=== PATIENT | male | born 1955 | race Caucasian/White ===

== ENCOUNTER → 2016-09-04 | Outpatient (CLI) | payer OTHER | LOC: FIMAGING 11:29 | PROVIDERS: ATTEND Family Medicine | DX: M51.36 Other intervertebral disc degeneration, lumbar region (principal); M43.8X6 Other specified deforming dorsopathies, lumbar region; I70.0 Atherosclerosis of aorta ==

== ENCOUNTER 2018-06-22 01:33 | Inpatient (IN) | payer OTHER ==
[2018-06-22] MEDS ORDERED: NS 1,000 ML IV ONE (01:41)
--- NOTE | 2018-06-22 01:43 | EDPHY ---
H & P Stated Complaint: R sided CP since 2029 Time Seen by Provider: 06/22/18 01:43 HPI/ROS: HPI CHIEF COMPLAINT: Chest pain. HISTORY OF PRESENT ILLNESS: 62-year-old male, history of coronary artery disease with stents, hypertension, hyperlipidemia, PERI, presents emergency room with chest pain. He states this started around 830 at night. Developed sharp stabbing pain that radiated from around the right side of his chest around his right shoulder to his back. He now complains of dull aching chest pressure substernal right-sided. No pleuritic pain. No shortness of breath. No nausea no diaphoresis no vomiting. Denies pleuritic pain. He describes this chest discomfort is similar to his previous times he had in stent thrombosis cardiac stents. Currently describes 11/14. He took multiple nitroglycerin prior to arrival with some relief. Past Medical History: Past medical history for coronary artery disease, hypertension, hyperlipidemia, obstructive sleep apnea, cardiac disease with stents, in stent thrombosis Past Surgical History: PTCA, cardiac stent Social History: Denies drugs alcohol tobacco. Family History: Noncontributory ROS REVIEW OF SYSTEMS: 10 Systems were reviewed and negative with the exception of the elements mentioned in the history of present illness. Exam Constitutional nontoxic, triage nursing summary reviewed, vital signs reviewed , awake/alert. Eyes normal conjunctivae and sclera, EOMI, PERRLA. HENT normal inspection, atraumatic, moist mucus membranes, no epistaxis, neck supple/ no meningismus, no raccoon eyes. Respiratory clear to auscultation bilaterally, normal breath sounds, no respiratory distress, no wheezing. Cardiovascular rate normal, regular rhythm, no murmur, no edema, distal pulses normal. Gastrointestinal soft, non-tender, no rebound, no guarding, normal bowel sounds, no distension, no pulsatile mass. Genitourinary no CVA tenderness. Musculoskeletal no midline vertebral tenderness, full range of motion, no calf swelling, no tenderness of extremities, no meningismus, good pulses, neurovascularly intact. Skin pink, warm, & dry, no rash, skin atraumatic. Neurologic awake, alert and oriented x 3, AAOx3, moves all 4 extremities equally, motor intact, sensory intact, CN II-XII intact, normal cerebellar, normal vision, normal speech. Psychiatric normal mood/affect. Heme/Lymph/Immune no lymphadenopathy. Differential diagnosis includes but is not limited to: ACS, atypical chest pain , pneumothorax, pneumonia, pulmonary embolism, aortic dissection, congestive heart failure, tumor, musculoskeletal pain, esophageal pain, GERD, peptic ulcer disease, pancreatitis Medical Decision Making: Plan for this patient IV establishment full cardiac rehabilitation program director, EKG, troponin, basic blood work, chest x-ray and re-evaluation. Rule out acute coronary syndrome. bus monitor. Full-dose aspirin, nitroglycerin. Re-evaluation: EKG interpretation by me on record in [email or web address] system. Impression time of EKG 1:45 a.m., sinus rhythm rate of 68, no signs of acute ischemia. No ST elevation. ED x-ray chest one view cardiomegaly with widened mediastinum. Good lung inflammation otherwise. Troponin is negative. The patient's EKG does not show acute ischemia and looks similar to his previous EKG dated 06/13/2014 HEART Score for Major Cardiac Events from [email or web address] on 06/22/2018 All calculations should be rechecked by clinician prior to use RESULT SUMMARY: 4 points Moderate Score (4-6 points) Risk of MACE of 12-16.6%. INPUTS: History > 1 = Moderately suspicious EKG > 0 = Normal Age > 1 = 45-64 Risk factors > 2 = 3 risk factors or history of atherosclerotic disease Initial troponin > 0 = normal limit CT angiogram the chest no evidence of pulmonary embolism. Extensive coronary calcifications. No AAA and no dissection. Called to me by Dr. Burris. Patient at this time 3:20 a.m. Resting comfortably chest pain-free. Received nitro which improved his chest discomfort. D-dimer negative Troponin negative EKG nonischemic. 0338: Patient re-evaluated this time resting comfortably no acute distress. Vital signs are stable Plan for admission the hospitalist service Dr. Oreilly. Agrees to admit Further cardiac evaluation. Patient updated and agrees for admission. Heart score calculated moderate score due to coronary artery disease with stents. Source: Patient - Personal History Current Tetanus/Diphtheria Vaccine: Unsure - Medical/Surgical History Hx Asthma: No Hx Chronic Respiratory Disease: No Hx Diabetes: No Hx Cardiac Disease: Yes Hx Renal Disease: No Hx Cirrhosis: No Hx Alcoholism: No Hx HIV/AIDS: No Hx Splenectomy or Spleen Trauma: No Other PMH: stents,cad, hyperlipidemia. gerd. htn. environmental allergies - Social History Smoking Status: Never smoked Constitutional: Initial Vital Signs Temperature (C) 36.7 C 06/22/18 01:34 Heart Rate 80 06/22/18 01:34 Respiratory Rate 18 06/22/18 01:34 Blood Pressure 137/85 H 06/22/18 01:34 O2 Sat (%) 93 06/22/18 01:34 O2 Delivery Mode Room Air Allergies/Adverse Reactions: Penicillins Allergy (Unknown, Verified 06/22/18 09:32) Hives sulfamethoxazole [From Septra] Allergy (Unknown, Verified 06/22/18 09:32) Hives trimethoprim [From Septra] Allergy (Unknown, Verified 06/22/18 09:32) Hives Home Medications: Medication Instructions Recorded Aspirin [Aspirin 325 mg (*)] 325 mg PO DAILY 06/12/14 Atorvastatin Calcium [Lipitor 40 80 mg PO DAILY 06/12/14 mg (*)] Clopidogrel Bisulfate [Plavix (*)] 75 mg PO DAILY 06/12/14 Fluticasone Nasal [Flonase Nasal 1 sprays NASAL DAILY 06/12/14 [place]] Nitroglycerin [Nitrolingual] 0.4 gm TL PRN PRN 06/12/14 amLODIPine BESYLATE [Norvasc 5 mg 5 mg PO DAILY 06/12/14 (*)] Nebivolol HCl [Bystolic 5 mg (*)] 5 mg PO DAILY 06/22/18 Medical Decision Making - Diagnostics Imaging Results: Imaging Impressions Chest/Thorax CTA 06/22/18 02:28 Impression: 1. No definite pulmonary thromboemboli. 2. No aortic aneurysm or dissection. 3. Mediastinal fat without hematoma or fluid collection. 4. Coronary atherosclerosis and mild cardiomegaly. 5. No pneumonia, pleural effusion, pneumothorax, or suspicious pulmonary nodules. Findings and recommendations discussed with Emergency Department physician, Thomas Ruff MD, at 0305 hours, 06/22/2018. Final report concurs with initial preliminary interpretation. - Data Points Laboratory Results: Laboratory Results 06/22/18 01:50 06/22/18 01:50 Medications Given: Acetaminophen (Tylenol) 650 mg PO QID PRN PRN Reason: Pain, Mild Able to Take PO Stop: 12/19/18 10:59 Last Admin: 06/22/18 15:43 Dose: 650 mg Aspirin (Aspirin) 325 mg PO DAILY [facility] Stop: 12/19/18 10:14 Last Admin: 06/22/18 12:23 Dose: Not Given Sodium Chloride (Ns) 1,000 mls @ 100 mls/hr IV CONT TONI Stop: 12/19/18 15:44 Last Admin: 06/22/18 20:15 Dose: 1,000 mls Nebivolol (Bystolic) 5 mg PO DAILY [facility] Stop: 12/19/18 09:59 Last Admin: 06/22/18 12:23 Dose: 5 mg Discontinued Medications Aspirin (Aspirin) 324 mg PO EDNOW ONE Stop: 06/22/18 02:18 Last Admin: 06/22/18 02:18 Dose: 324 mg Aspirin Buffered (Aspirin Ec) 325 mg PO ONCALL ONE Stop: 06/22/18 11:01 Last Admin: 06/22/18 12:23 Dose: 325 mg Clopidogrel Bisulfate (Plavix) 300 mg PO ONCE ONE Stop: 06/22/18 15:39 Last Admin: 06/22/18 18:09 Dose: Not Given Diazepam (Valium) 5 mg PO ONCALL ONE Stop: 06/22/18 11:01 Last Admin: 06/22/18 13:32 Dose: Not Given Diphenhydramine HCl (Benadryl) 25 mg PO ONCALL ONE Stop: 06/22/18 11:01 Last Admin: 06/22/18 13:32 Dose: Not Given Famotidine (Pepcid) 20 mg PO ONCALL ONE Stop: 06/22/18 11:01 Last Admin: 06/22/18 13:32 Dose: Not Given Sodium Chloride (Ns) 1,000 mls @ 0 mls/hr IV EDNOW ONE; Wide Open PRN Reason: Protocol Stop: 06/22/18 01:42 Last Admin: 06/22/18 01:57 Dose: 1,000 mls Morphine Sulfate (Morphine) 6 mg IVP EDNOW ONE Stop: 06/22/18 03:36 Last Admin: 06/22/18 03:44 Dose: 6 mg Nitroglycerin (Nitrostat) 0.4 mg SL EDNOW ONE Stop: 06/22/18 02:08 Last Admin: 06/22/18 02:52 Dose: 0.4 mg Point of Care Test Results: Chemistry 06/22/18 01:51 POC Troponin I 0.00 ng/mL ng/mL (0.00-0.08) Departure - Departure Disposition: [facility] Acute Clinical Impression: Chest pain Qualifiers: Chest pain type: unspecified Qualified Code(s): R07.9 - Chest pain, unspecified Condition: Fair
[2018-06-22 01:54] LABS: PLATELET COUNT 267 10^3/uL (150-400)
[2018-06-22 02:03] LABS: INR 0.95 (0.83-1.16); PROTIME(PATIENT) 12.9 SEC (12.0-15.0)
[2018-06-22] MEDS ORDERED: ASPIRIN EC 325 MG TAB PO ONE ×2 (02:07→11:00)
[2018-06-22 02:08] LABS: CREATINE KINASE 177 IU/L (0-224)
[2018-06-22] MEDS ORDERED: ASPIRIN 81 MG CHEWABLE TAB ONE (02:15)
[2018-06-22] MEDS ORDERED: ASPIRIN 81 MG CHEWABLE TAB PO ONE (02:17)
[2018-06-22] MEDS: NITROGLYCERIN 0.4 MG BTL SL ONE ×2 (02:18→02:52)
[2018-06-22] MEDS ORDERED: IOPAMIDOL (ISOVUE 370) 100 ML BTL IV ONE (02:30)
--- NOTE | 2018-06-22 08:22 | GHP ---
DATE OF ADMISSION: 06/22/2018 The patient is a pleasant 62-year-old gentle with a history of coronary artery disease and 2 RCA sten ts. His last stent was placed in June of 2014. He has been compliant with aspirin and Plavix. Karina alarcon has done well since then other than worsening back pain. Last night he got up to go get something after watching TV, pain across his left side, radiating around to his back and to a lesser degree on his left side. It was not accompanied with diaphoresis or shortness of breath. There was a pressure aspect of it that was similar in nature to his previous anginal symptoms, although both had shortness of breath as well. He did not make the connection to his anginal symptoms and used a heating pad fo r a couple hours where the pain was steady and then ultimately decided to take a nitroglycerin spray which resulted in improvement. He has not had recent fever, chills, cough, sputum, nausea, vomiting, diarrhea. He does not have hea rt failure symptoms such as PND or orthopnea. It sounds like his back pain limits his exercise naun ance. REVIEW OF SYSTEMS: Complete 10-point review of systems conducted and negative except as noted in the HPI. PAST MEDICAL HISTORY: Coronary artery disease with 2 RCA stents, hypertension, hyperlipidemia, reflu x, chronic sinusitis, low back pain. He had 2011 and 2014 RCA stents, there is a question of in-sten t thrombosis partial in 2015. ALLERGIES: Penicillin and trimethoprim/sulfamethoxazole. MEDICATION LIST: Recent medication list is not pending, but includes aspirin, Plavix, amlodipine, at orvastatin, Bystolic, nitroglycerin, pantoprazole. FAMILY HISTORY: Reviewed and unremarkable. SOCIAL HISTORY: Is a manager business banking. Drinks rare alcohol. Does not smoke cigarettes. PHYSICAL EXAMINATION: VITAL SIGNS: Temp 36.5, blood pressure 126/77, pulse 71, breathing 20 times a minute, 93% on room air. GENERAL: No acute distress. HEENT: Sclerae anicteric. Oropharynx clear. M ucous membranes moist. NECK: Supple. No lymphadenopathy or JVD. LUNGS: Clear to auscultation nilson aterally. HEART: S1, S2. ABDOMEN: Soft, nontender, nondistended. LOWER EXTREMITIES: No edema. Ca lves nontender. SKIN: Without rash. NEUROLOGIC: Nonfocal. LABORATORY DATA: White count 8, hematocrit 44, platelets are 267,000. D-dimer is normal. Sodium 14 1, potassium 4.0, chloride 110, bicarb 22, BUN 9, creatinine 1.0, glucose 121. LFTs normal. Point o f care troponin 0.00. Lipase 109. Chest x-ray interpreted by me shows no acute cardiopulmonary disease. CTA of the chest shows no evid ence of dissection. All of that was reviewed by the ER doctor. EKG interpreted by me shows sinus at 68 with normal axis and intervals. There is some flat T-waves d iffusely. There is a little bit of ST depression in 1, but not seen in V5, V6, it is uncha nged from prior. I have discussed the case with Dr. Thomas Ruff as well as Dr. Raymundo Schulz. ASSESSMENT/PLAN: A 62-year-old gentleman with coronary artery disease with chest pain. 1. Chest pain. This is possibly an anginal equivalent. He has a negative presentation. I do consid er his previous possible in-stent thrombosis, he has been compliant with medications. Further testin g may be reasonable including possible angiogram. I have made him n.p.o., Cardiology will see him. He does not warrant heparin. I will repeat his troponin now. 2. Hypertension. Will continue his medications and they have been reconciled. 3. Hyperglycemia. This is a nonfasting sample. It is relatively low. We will follow. 4. Low back pain. This is a chronic issue and not playing a role in the current presentation. DISPOSITION: Observation status. /[id number]/MODL
[2018-06-22] MEDS ORDERED: NITROGLYCERIN TL PRN (09:58)
[2018-06-22] MEDS ORDERED: ACETAMINOPHEN 325 MG TAB PO PRN (11:00)
[2018-06-22] MEDS ORDERED: DIAZEPAM 5 MG TAB PO ONE (11:00)
[2018-06-22] MEDS ORDERED: TEMAZEPAM 15 MG CAP PO PRN (11:00)
[2018-06-22] MEDS ORDERED: diphenhydrAMINE 25 MG CAP PO ONE (11:00)
[2018-06-22] MEDS ORDERED: FAMOTIDINE 20 MG TAB PO ONE (11:00)
[2018-06-22] MEDS ORDERED: LIDOCAINE 1% 300 MG/30 ML SDV ONE (11:13)
[2018-06-22] MEDS ORDERED: MIDAZOLAM 2 MG/2 ML VIAL ONE ×3 (11:14→14:43)
[2018-06-22] MEDS ORDERED: fentaNYL 100 MCG/2 ML INJ ONE ×2 (11:14→13:42)
[2018-06-22] MEDS ORDERED: IOPAMIDOL (ISOVUE-370) 150 ML BTL IV ONE (11:14)
--- NOTE | 2018-06-22 12:06 | ECHO ---
[email or web address] [address] [address] Main: [phone] Fax: Transthoracic Echocardiogram Name: ELOISE SOLO MR#: [id number] Study Date: 06/22/2018 Study Time: 10:51 AM Date of : 1955 Age: 62 year(s) Height: 182.9 cm (72 in.) Weight: 117.03 kg (258 lb.) BSA: 2.37 m2 Gender: Male Examination: Echo Indication: Chest Pain, history CAD/2 stents Image Quality: Adequate Contrast: Requested by: Jay Andrews BP: 115 mmHg/78 mmHg Heart Rate: Rhythm: Indication: Chest Pain, history CAD/2 stents Procedure Staff Log Chipper Operator: Nataliia Flowers RDCS Reading Physician: Raymundo Schulz MD Requesting Provider: Conclusions: Normal size left ventricle. Normal global systolic LV function. The ejection fraction is estimated to be 60-65 %. No regional wall motion abnormality. Grade 1 diastolic dysfunction (abnormal relaxation). Normal RV function. The left atrium is normal in size. The right atrium is normal in size. No pericardial effusion. Measurements: Chambers Valvular Assessment AV/MV Valvular Assessment TV/PV Normal Normal Normal Name Value Range Name Value Range Name Value Range Ao Camilla (MM): 4.4 cm (2.2 cm-3.7 AV Vmax: 1.05 m/s (1 m/s-1.7 cm) m/s) IVSd (2D): 0.9 cm (0.6 cm-1.1 AV meanP mmHg ( - ) cm) MV E Vmax: 0.77 m/s ( - ) LVDd (2D): 5.3 cm (4.2 cm-5.9 MV A Vmax: 0.66 m/s ( - ) cm) MV E/A: 1.17 ( - ) LVDs (2D): 2.7 cm (2.1 cm-4 cm) LVPWd (2D): 0.9 cm (0.6 cm-1 cm) LVEF (BP): 72 % (>=55 %) EF Range: 60-65 % Continued Measurements: Chambers Valvular Assessment AV/MV Patient: ELOISE SOLO Study Date: 06/22/2018 Page 1 of 2 10:51 AM Name Value Name Value LADs: 4.2 cm MV E' Septal: 0.07 m/s LADs Lon.3 cm MV E/E' Septal: 11.80 LA Area: 18.8 cm2 MV E/E' Lateral: 10.30 LA Volume: 52 ml LA Volume Index: 21.9 ml/m2 Additional Vessels Name Value Ao Ascendin.5 cm Findings: Left Ventricle: Normal size left ventricle. No LV hypertrophy. Normal global systolic LV function. The ejection fraction is estimated to be 60-65 %. No regional wall motion abnormality. Grade 1 diastolic dysfunction (abnormal relaxation). Right Ventricle: Normal size right ventricle. Normal RV function. Left Atrium: The left atrium is normal in size. Right Atrium: The right atrium is normal in size. Mitral Valve: The mitral valve is normal in appearance and function. Trivial mitral valve regurgitation. Aortic Valve: The aortic valve is normal in appearance and function. The aortic valve is tri-leaflet. There is no aortic valve regurgitation. Tricuspid Valve: The tricuspid valve is normal in appearance and function. Trivial tricuspid valve regurgitation. Pulmonic Valve: The pulmonic valve is normal in appearance and function. Aorta: The aorta is normal. Pericardium: No pericardial effusion. (No Signature Object) Patient: ELOISE SOLO Study Date: 06/22/2018 Page 2 of 2 10:51 AM [id number]
--- NOTE | 2018-06-22 12:12 | GCON ---
CARDIOLOGY CONSULTATION DATE OF CONSULTATION: 06/22/2018 INDICATION FOR CONSULTATION: Chest pain in the setting of known coronary disease. HISTORY OF PRESENT ILLNESS: The patient is a pleasant 62-year-old gentleman who is well known to [facility] with a history of PCI to the RCA in 2011, and subsequent repeat PCI to the RCA with a 3.5 x 12 mm PROMUS drug-eluting stent in June 2015, with evidence of mild nonobstructive coronary dise ase within the left system who was in his usual state of health until the last evening around 8:30. He states he was watching TV when he got up to get a drink of water when he had an acute, sudden onse t of sharp 9/10 substernal chest pain that radiated to his back. He denied any other associated symp toms. He denied any nausea, vomiting, or diaphoresis. No associated shortness of breath. He states he tried to stretch out the pain and tried to relax. He states the pain persisted and he states he ultimately fell asleep at 10 o'clock. He woke up at midnight, describing 6/10 substernal pain, at wh ich time he took nitroglycerin spray x3. He states the nitroglycerin spray reduced his pain to a 3/1 0. At that point, he became concerned that his pain may be coronary in nature prompting him to wake his up and present to [facility] for further evaluation. Upon arrival in the emergency department, ECG demonstrated normal sinus rhythm with no acute ischemic changes. Troponin on admission was unremarkable. In the ER, he received nitroglycerin, which helped reduce his pain, but persisted. Chest x-ray was c oncerning for possible widened mediastinum. He underwent CT-A of the chest, which was negative for p ulmonary embolus and no evidence of aortic dissection. Currently at the time of my exam, he continues to experience substernal chest pain radiating to the b ack. He currently describes his pain as a 3/10. He denies any associated shortness of breath, dyspn ea, nausea, vomiting, or diaphoresis. He states his chest pain is similar to the pain that he experienced with his previous percutaneous co ronary interventions; however, previous episodes were associated with shortness of breath, which is n ot currently present. He denies any recent changes in his medications. No recent viral illness. He does have a history of GERD. He has been compliant with Protonix. He remains on dual antiplatelet therapy with aspirin an d Plavix. No bleeding issues. REVIEW OF SYSTEMS: 10-point review of systems is negative with the exception of what was discussed i n HPI. PAST MEDICAL HISTORY: Includes coronary artery disease, GERD, hypertension, hyperlipidemia, history of migraines, sleep apnea compliant with CPAP. MEDICATIONS: On admission, include Plavix 75 mg daily, atorvastatin 80 mg daily, aspirin 325 mg adam y, Norvasc 5 mg daily, Bystolic 5 mg daily, and Flonase nasal spray. ALLERGIES: To medications, include penicillin and sulfa, which result in a rash. SOCIAL HISTORY: He is . He lives with his . He is a nonsmoker. FAMILY HISTORY: Notable for diabetes, coronary disease and hypertension. PHYSICAL EXAMINATION: VITAL SIGNS: Blood pressure 115/78, heart rate of 60, respiratory rate of 16, oxygen saturation 97% on room air, temperature 36.4. GENERAL: He is awake, alert, oriented, approp riate, in no apparent distress. NECK: There is no evidence of JVP or carotid bruits. LUNGS: Clear to auscultation bilaterally. CARDIAC: S1, S2. Regular rate and rhythm. No murmurs, rubs, or gall ops. PMI is not displaced. DATA: White blood cell count 8.44, hemoglobin of 14.9, hematocrit of 44.1, platelet count 267. Sodi um 141, potassium 4.0, chloride 110, bicarb 22, BUN 18, creatinine 1, magnesium 1.8. AST 36, ALT 53, alkaline phosphatase 109. Initial troponin less than 0.012. N-terminal proBNP 25. Lipase 167. ECG demonstrates normal sinus rhythm with normal intervals, normal axis. Telemetry demonstrates sinus rhythm with occasional PVCs. Most recent stress test April 2017, demonstrated no evidence of ischemia. IMPRESSION: 1. Substernal chest pain similar to pain prior to previous percutaneous coronary intervention. 2. Known history of coronary artery disease with history of percutaneous coronary intervention to th e right coronary artery x2. 3. Hypertension. 4. Hyperlipidemia. SUMMARY: The patient is a pleasant 62-year-old gentleman with known history of coronary disease with new onset of acute chest pain radiating to the back, initially 9/10, pain persists. Initial troponi n was negative. ECG demonstrates no ischemic changes. In the setting of ongoing 3/10 substernal renato n radiating to the back with a negative CT-A for evidence of aortic dissection or pulmonary emboli, w ould recommend left heart catheterization. Risks and benefits have been discussed in detail. Patien t is agreeable to pursue. No upcoming surgeries. PLAN: 1. Echocardiogram being done currently. 2. Left heart catheterization. 3. Further medical management pending results of left heart catheterization. /[id number]/MODL
[2018-06-22 12:22] LABS: INR 1.04 (0.83-1.16); PROTIME(PATIENT) 13.8 SEC (12.0-15.0)
[2018-06-22] MEDS: ASPIRIN 325 MG TAB PO SCH (12:23)
[2018-06-22] MEDS: NEBIVOLOL HCL 5 MG TAB PO SCH (12:23)
--- NOTE | 2018-06-22 12:53 | PDPROPOC ---
Sedation Plan of Care Sedation Plan of Care: vital signs stable, mental status noted, patient educated of risks, benefits, alternatives, patient can tolerate sedation ASA Classification: ASA 2 Planned drugs: fentanyl, midazolam Mallampati Score: Class 2 Mallampati Reference Image: Patient passed 3-3-2 rule?: Yes
[2018-06-22] MEDS ORDERED: BIVALIRUDIN 250 MG/5 ML VIAL IV ONE ×3 (13:13→14:14)
--- NOTE | 2018-06-22 13:53 | CPIP ---
DATE OF PROCEDURE: 06/22/2018 INDICATION FOR PROCEDURE: Patient with ongoing chest pain despite optimal medical therapy with well- controlled blood pressure and heart rate in the setting of known coronary artery disease with previou s PCI x2 to the right coronary artery in the setting of acute onset of chest pain that began last nig ht, refractory to nitroglycerin. ECG was without ischemic changes. Initial troponin was unremarkabl e. DESCRIPTION OF PROCEDURE: After informed consent was obtained for both left heart catheterization, p ercutaneous coronary intervention, the patient was brought to the cardiac catheterization lab where h e was prepped and draped in sterile fashion. Using 1% lidocaine, the right groin was anesthetized. Using modified Seldinger technique, a micropun cture technique 6-[place]an catheter was placed in the right common femoral artery without complications . JL4 catheter was used to take images of the left coronary anatomy in multiple projections. JL4 ca theter was exchanged over a guidewire for a JR4 catheter. JR4 catheter was used to take images of th e right coronary anatomy in multiple projections. JR4 catheter was exchanged over a guidewire for an angled pigtail catheter. Angled pigtail catheter was used to cross the aortic valve. Left ventricu logram was performed. LVEDP was assessed. Aortic valve gradient was assessed on pull-back. Angled pigtail catheter was removed over a guidewire without complications. Imaging of the right common fem oral artery site demonstrated appropriate placement of the 6-[place]an sheath above the bifurcation belo w the inguinal ligament. FINDINGS: 1. Left main normal size and caliber. It trifurcates into left anterior descending, left circumflex , and ramus branch. There is no evidence of coronary disease within the left main. 2. Left anterior descending demonstrates mild luminal irregularities in the proximal segment with no flow-limiting stenosis. There is a moderate first diagonal branch with no evidence of coronary dise ase. 3. Ramus intermedius branch demonstrates no evidence of coronary disease. 4. Circumflex vessel is a codominant vessel. There is no evidence of coronary disease within the ci rcumflex vessel. There is a moderate 1st obtuse marginal branch with no evidence of coronary disease . 5. Right coronary artery is a codominant vessel. There is evidence of 20% to 30% in-stent stenosis in the distal segment of a proximal stent to the right coronary artery. Just distal to the proximal stent, there is a 90% stenosis just prior to second RV marginal branch. No evidence of flow-limiting disease in the distal segment of the right coronary artery. IMPRESSION: Severe single-vessel disease with 90% proximal right coronary artery stenosis and mild i n-stent stenosis in the distal segment of proximal right coronary artery stent. I reviewed the images with interventional colleague, Dr. Arnold. Will plan for percutaneous coronary mention to the mid right coronary artery. /[id number]/MODL
[2018-06-22] MEDS ORDERED: ATROPINE SULFATE 1 MG/10 ML SYR ONE (14:18)
[2018-06-22] MEDS ORDERED: NITROGLYCERIN 1,500 MCG/15 ML VIAL MISC ONE (14:19)
[2018-06-22] MEDS ORDERED: CLOPIDOGREL BISULFATE 75 MG TAB ONE (15:16)
--- NOTE | 2018-06-22 15:35 | SUROPNOTE ---
SOLE Operative Report - Surgery PROCEDURE: Left heart catheterization started by Dr. Schulz. Please see surgical note completed by Dr. Schulz for findings of the left and right coronary systems. INTERVENTION: A 7 Albanian JR4 Sidehole guiding catheter was used for guide catheter support. A 0.014" 180cm [place] guide wire was advanced across the lesion in question under direct fluoroscopic and angiographic guidance. A 6 Albanian JL4 guiding catheter was used for guide catheter support. A 3.0 x 15mm Emerge balloon was inflated at 18 atmospheres for 60 seconds. A [place] 3.0 x 6mm cutting balloon was advanced down the Prowater wire with three serial inflations. The first pass with 12 atmospheres for 83 seconds, the second pass with 12 atmospheres for 53 seconds and the final pass with 12 atmospheres for 38 seconds. There was still at least 70% residual stenosis post cutting balloon angioplasty. The balloon and Prowater wire were removed and replaced with a Rotawire and Rotablader 1.75mm jose antonio was used to perform rotational artherectomy of the proximal and mid RCA past the acute margin of the heart. There were two passes made with the Rotabader 1.75mm jose antonio. Rotational atherectomy was associated with intermittent complete heart block requiring a temporary pacemaker wire insertion. The Rotablader was then removed and the Guideliner 6 Albanian guiding catheter was advanced down the RCA. A 2.5 x 12mm Sprinter over the wire balloon was advanced down the Guideliner. The wire was exchanged for a 190cm short Wiggle wire. The balloon was inflated d at 12 atmospheres for 10 seconds. The second inflation was 6 atmospheres for 10 seconds. The short wiggle wire was removed and replaced with a 300cm long wiggle wire. A 3.5 x 38mm Synergy drug eluting stent was advanced down the RCA to just past the acute margin of the heart. The stent was deployed at a maximum pressure of 18 atmospheres with 2 serial inflations. The stent was post dilated with a A 4.0 x 8mm NC Emerge balloon with serial inflations throughout the stented segment at a maximum pressure of 20 atmospheres in the proximal region with 10% residual stenosis in the proximal segment and 5% stenosis in the most stenotic region preoperatively ( estimated 95% stenosis). There was NOE III flow pre and post stent implantation. ASSESSMENT: The patient had a critical in-segment stenosis at the level of a RV Branch takeoff(Estimated to be 95%). There was a good result post rotational atherectomy, cutting balloon angioplasty, and drug eluting stent implantation. The patient should be placed on dual antiplatelet therapy with Plavix 75mg daily and low dose aspirin, specifically a dose of 81mg. The patient has multiple overlapping stents in the RCA and it may be beneficial for the patient to be on dual anti-platelet therapy predatory animal exterminator.
[2018-06-22] MEDS ORDERED: CLOPIDOGREL BISULFATE 75 MG TAB PO ONE (15:38)
[2018-06-22] MEDS ORDERED: ONDANSETRON 4 MG/2 ML VIAL IVP PRN (15:38)
[2018-06-22] MEDS ORDERED: ATROPINE SULFATE 1 MG/10 ML SYR IVP PRN (15:38)
[2018-06-22] MEDS ORDERED: NS 1,000 ML IV SCH (15:45)
--- NOTE | 2018-06-22 16:32 | HOSPPROG ---
Hospitalist Progress Note Assessment/Plan: #RCA CAD with significant stenosis -s/p rotational atherectomy, angioplasty, and drug eluding stent -Aspirin -Plavix #chest Pain #HTN -Holding Amlodipine #HLD -LDL 75 -Cont Lipitor Plan: Post op care per Cardiology cont Aspirin/Plavix BP mgmt Statin Change to inpatient Subjective: see post procedure. during well. denies chest pain. no sob Objective: Vital Signs Temp Pulse Resp BP Pulse Ox 36.4 C 60 16 115/78 97 06/22/18 07:32 06/22/18 07:32 06/22/18 07:32 06/22/18 07:32 06/22/18 07:32 06/21/18 06/22/18 06/23/18 05:59 05:59 05:59 Intake Total 1000 Balance 1000 PT 13.8 SEC (12.0-15.0) 06/22/18 11:45 INR 1.04 (0.83-1.16) 06/22/18 11:45 - Physical Exam Constitutional: no apparent distress Eyes: PERRL, EOMI Ears, Nose, Mouth, Throat: moist mucous membranes, hearing normal Cardiovascular: regular rate and rhythym, No edema Respiratory: no respiratory distress, no rales or rhonchi, clear to auscultation Gastrointestinal: normoactive bowel sounds, soft, non-tender abdomen Skin: warm Neurologic: AAOx3 Psychiatric: interacting appropriately, not anxious, not encephalopathic Lymph, Heme, Immunologic: No petechiae ICD10 Worksheet Patient Problems: Problems Problem Status Onset Chest pain Acute
--- NOTE | 2018-06-22 23:06 | CPEKG ---
Test Reason : OPEN Blood Pressure : / mmHG Vent. Rate : 068 BPM Atrial Rate : 068 BPM P-R Int : 192 ms QRS Dur : 087 ms QT Int : 438 ms P-R-T Axes : 012 011 040 degrees QTc Int : 466 ms Sinus rhythm Confirmed by Paul Gilliam ([id number]) on 06/22/2018 11:06:33 PM Referred By: Confirmed By:Paul Gilliam
--- NOTE | 2018-06-22 23:07 | CPEKG ---
Test Reason : OPEN Blood Pressure : / mmHG Vent. Rate : 067 BPM Atrial Rate : 068 BPM P-R Int : 191 ms QRS Dur : 086 ms QT Int : 426 ms P-R-T Axes : 006 027 064 degrees QTc Int : 450 ms Sinus rhythm Confirmed by Paul Gilliam ([id number]) on 06/22/2018 11:06:58 PM Referred By: Confirmed By:Paul Gilliam
[2018-06-23] MEDS: NEBIVOLOL HCL 5 MG TAB PO SCH (08:52)
[2018-06-23] MEDS: ASPIRIN 325 MG TAB PO SCH (08:52)
[2018-06-23] MEDS ORDERED: ATORVASTATIN CALCIUM 40 MG TAB PO SCH (09:00)
[2018-06-23] MEDS ORDERED: FLUTICASONE NASAL 120 SPRAYS/16 GM MDI EACHNARE SCH (09:00)
[2018-06-23] MEDS ORDERED: CLOPIDOGREL BISULFATE 75 MG TAB PO SCH (09:00)
--- NOTE | 2018-06-23 12:08 | PDCARPN ---
Cardiology Progress Note Assessment/Plan: Assessment: -CAD -RCA PCI yesterday -hyperlipidemia -hypertension Plan: -DC atorvastatin in setting of LDL of 75 -Start Rosuvastatin 40 mg daily -Start Zetia 10 mg daily -Continue Plavix 75 mg daily, with 3 interventions to RCA since 2010, recommend termite helper plavix therapy -Continiue Aspirin 891 mg daily -Continue Bystolic 5 mg daily -Enroll in Cardiac Rehab -Follow up with his Primary Lead Customer Service Representative, Dr. Wolfgang Noonan on Jun at 10:30 in the [place] OFFICE -Post [facility] instructions reviewed in detail 06/23/18 12:08 Subjective: Vikas is feeling well this AM. He presented yesterday with chest pain that had started the evening prior to his presentation to [facility]. His troponin was negative. With ongoing chest pain, he was brought to slab lifting supervisor. Cath demonstrated significant 90% stenosis. He underwent a prolonged intervention to the RCA requiring rotoblade (see Dr. Arnold report for details) and had successful 4.0 x 8 mm stent placment. this am he is feleing well. no complaints. Vitals stable. Groin site without hematoma or ecchymosis. LDL is 75 on Atorvastatin 80mg daily Reviewed/Discussed With: hospitalist, multidisciplinary team Objective: Vital Signs (8 Hrs) Temp Pulse Resp BP Pulse Ox 06/23/18 07:41 36.9 C 74 18 123/75 H 92 Intake/Output (24 Hrs) 06/22/18 06/23/18 06/24/18 05:59 05:59 05:59 Intake Total 1000 1220 500 Output Total 550 Balance 1000 670 500 Intake: Oral (ml) 500 300 IV Infused (ml) 1000 720 200 Ns 1,000 ml @ 100 mls/hr 720 200 IV CONT TONI Rx#: [id number] Output: Urine (ml) 550 Urinal 550 Other: Weight 117.2 kg Number of Voids Toilet 1 2 2 Number of Emesis 1 Occurrences Result Diagrams: 06/22/18 01:50 06/23/18 04:05 Cardiac Labs: Cardiac Lab Results (72 Hrs) 06/22/18 08:17 Troponin I < 0.012 - Physical Exam Ears, Nose, Mouth, Throat: moist mucous membranes Cardiovascular: regular rate and rhythm, no murmurs, no rubs, no gallops Peripheral Pulses: 2+: carotid (R), carotid (L) Respiratory: clear to auscultate bilat Skin: no rashes Musculoskeletal: no muscular tenderness Neurologic: AAOx3, CN II-XII grossly intact Psychiatric: cooperative, interactive, following commands ICD10 Worksheet Patient Problems: Problems Problem Status Onset Chest pain Acute
[2018-06-23 12:37] VITALS: BP 110/76
--- NOTE | 2018-06-23 12:50 | PDDCSUM ---
Discharge Summary Discharge Summary: 62 yo male feeling wit hx of CAD admitted chest pain that had started the evening prior to his presentation to [facility]. His troponin was negative. With ongoing chest pain, he was brought to slab lifting engineer. Cath demonstrated significant 90 % stenosis. He underwent a prolonged intervention to the RCA requiring rotoblade (see Dr. Arnold report for details) and had successful 4.0 x 8 mm stent placment. DDX #CAD: -s/p rotational atherectomy, angioplasty, and drug eluding stent #RCA PCI yesterday -Continue Plavix 75 mg daily, with 3 interventions to RCA since 2010, recommend group home plavix therapy -Continue Aspirin 81 mg daily -Continue Bystolic 5 mg daily -Enroll in Cardiac Rehab -Follow up with his Primary Portfolio Analyst, Dr. Wolfgang Noonan on Jun at 10:30 in the [place] OFFICE #hyperlipidemia -DC atorvastatin in setting of LDL of 75 -Start Rosuvastatin 40 mg daily -Start Zetia 10 mg daily #hypertension: hold Amlodipine Exam: NAD AAOX3 RRR CTAB MEDS: SEE MED REC F/U: PER ABOVE TOTAL TIME SPENT ON D/C IS 35 MINS. D/W CARDIOLOGY AND NURSING
[2018-06-24] MEDS ORDERED: EZETIMIBE 10 MG TAB PO SCH (09:00)
[2018-06-24] MEDS ORDERED: ROSUVASTATIN CALCIUM 40 MG TAB PO SCH (09:00)
--- NOTE | 2018-06-24 12:38 | PDMN ---
Medical Necessity Medical necessity: Change to inpt as of 06/22/18 @ 16:31 per MD order and MCG M- 40, Angina. 62 y/o w/hx CAD and stents presented w/acute onset chest pain that radiated to R shoulder and back, underwent LHC and was found to have 90% stenosis to RCA requiring acute intervention: rotoblade, angioplasty, and stent.
--- NOTE | 2018-06-24 21:57 | CPEKG ---
Test Reason : OPEN Blood Pressure : / mmHG Vent. Rate : 068 BPM Atrial Rate : 068 BPM P-R Int : 179 ms QRS Dur : 089 ms QT Int : 415 ms P-R-T Axes : -08 006 054 degrees QTc Int : 442 ms Sinus rhythm Confirmed by Thomas Ruff ([id number]) on 06/24/2018 9:56:47 PM Referred By: Confirmed By:Thomas Ruff
== END 2018-06-23 14:11 | disposition home or self-care (01) | DRG 247 ==
LOC: F2W 04:32 → OBSVTOIN 16:31
PROVIDERS: ADMIT Internal Medicine; ATTEND Internal Medicine
PROC: 027034Z Dilation of Coronary Artery, One Artery with Drug-eluting Intraluminal Device, Percutaneous Approach (ICD-10-PCS; principal; 2018-06-22)
DX: I25.10 Atherosclerotic heart disease of native coronary artery without angina pectoris (principal); E78.5 Hyperlipidemia, unspecified; I10 Essential (primary) hypertension; G47.33 Obstructive sleep apnea (adult) (pediatric); Z95.5 Presence of coronary angioplasty implant and graft
CPT/HCPCS: 84484-ER; 96374; C1724; C1725; C1760; C1769; C1874; C1887; C1894; C9602; G0378; J0461; J0583; J1644; J2250; J2270; J3010; Q9967

== ENCOUNTER 2018-07-10 09:54 | Emergency (ER) | payer OTHER ==
--- NOTE | 2018-07-10 10:04 | EDPHY ---
H & P Time Seen by Provider: 07/10/18 09:58 HPI/ROS: CHIEF COMPLAINT: Migratory arthralgias x2 days HISTORY OF PRESENT ILLNESS: Patient presents to the ED with diffuse migratory arthralgias for the past 2 days. The patient describes pain in his neck, left hand, left toe, left calf, right shoulder and right leg over the past 2 days. The patient did recently undergo an angiogram was diagnosed with recurrent in stent stenosis in his right coronary artery. The patient denies any fever, chills or productive cough. He denies any pleuritic chest pain. He denies any asymmetric calf pain or swelling. The patient denies significant headache. Patient has been taking aspirin and Plavix since his angiogram. REVIEW OF SYSTEMS: A comprehensive 10 point review of systems is otherwise negative aside from elements mentioned in the history of present illness. Source: Patient - Medical/Surgical History Hx Asthma: No Hx Chronic Respiratory Disease: No Hx Diabetes: No Hx Cardiac Disease: Yes Hx Renal Disease: No Hx Cirrhosis: No Hx Alcoholism: No Hx HIV/AIDS: No Hx Splenectomy or Spleen Trauma: No Other PMH: stents,cad, hyperlipidemia. gerd. htn. environmental allergies - Social History Smoking Status: Never smoked - Physical Exam Exam: General Appearance: Alert, no distress Eyes: Pupils equal and round no pallor or injection ENT, Mouth: Mucous membranes moist Respiratory: There are no retractions, lungs are clear to auscultation Cardiovascular: Regular rate and rhythm Gastrointestinal: Abdomen is soft and nontender, no masses, bowel sounds normal Neurological: A&O, normal motor function, normal sensory exam, normal cranial nerves Skin: Warm and dry, no rashes Musculoskeletal: Neck is supple nontender Extremities: symmetrical, full range of motion Constitutional: Initial Vital Signs Temperature (C) 36.8 C 07/10/18 10:04 Heart Rate 76 07/10/18 10:04 Respiratory Rate 16 07/10/18 10:04 Blood Pressure 156/102 H 07/10/18 10:04 O2 Sat (%) 89 L 07/10/18 10:04 O2 Delivery Mode Room Air Allergies/Adverse Reactions: Penicillins Allergy (Unknown, Verified 07/10/18 10:03) Hives sulfamethoxazole [From Febra] Allergy (Unknown, Verified 07/10/18 10:03) Hives trimethoprim [From Febra] Allergy (Unknown, Verified 07/10/18 10:03) Hives Home Medications: Medication Instructions Recorded Aspirin [Aspirin 325 mg (*)] 325 mg PO DAILY 06/12/14 Fluticasone Nasal [Flonase Nasal 1 sprays NASAL DAILY 06/12/14 [place]] Nitroglycerin [Nitrolingual] 0.4 gm TL PRN PRN 06/12/14 Nebivolol HCl [Bystolic 5 mg (*)] 5 mg PO DAILY 06/22/18 Clopidogrel Bisulfate [Plavix (*)] 75 mg PO DAILY #30 tab 06/23/18 Ezetimibe [Zetia 10 MG (*)] 10 mg PO DAILY #30 tab 06/23/18 Rosuvastatin Calcium [Crestor 40mg 40 mg PO DAILY #30 tab 06/23/18 (*)] Medical Decision Making - Diagnostics EKG Interpretation: EKG: Complete interpretation has been separately recorded in the [email or web address] archive. Summary impression: Sinus rhythm, rate 62, no ischemic changes noted ED Course/Re-evaluation: The patient presents the ED with multiple arthralgias and myalgias for the past 2 days. The patient was concerned given his recent history of coronary stenting. He reports that his symptoms he is having today are entirely different than his typical anginal symptoms. 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 The patient is noted to be neurologically intact in the emergency department. His EKG demonstrates no evidence of ischemia and despite 2 days of constant symptoms his troponin is normal. My suspicion for acute coronary syndrome or in stent stenosis is low. The patient's laboratory studies and metabolic panel are normal. I believe that his symptoms are most likely muscular in nature likely secondary to his recent use of the mercury washer. There is not indication for repeat angiography at this point time. The patient has been told that my clinical suspicion is low however I cannot fully exclude the presence of recurrent coronary artery disease. The patient is comfortable being discharged home with the understanding that he return to the ED for worsening symptoms given the uncertainty in our ability to completely exclude issues related to his recent heart catheterization. Differential Diagnosis: Differential diagnosis considered includes acute coronary syndrome, dehydration , metabolic derangement, myofascial strain, peripheral neuropathy - Data Points Laboratory Results: Laboratory Results 07/10/18 10:10 07/10/18 10:10 07/10/18 07/10/18 07/10/18 10:14 10:10 10:10 WBC 6.37 10^3/uL 10^3/uL (3.80-9.50) RBC 4.69 10^6/uL 10^6/uL (4.40-6.38) Hgb 15.1 g/dL g/dL (13.7-17.5) Hct 45.0 % % (40.0-51.0) MCV 95.9 fL fL (81.5-99.8) MCH 32.2 pg pg (27.9-34.1) MCHC 33.6 g/dL g/dL (32.4-36.7) RDW 13.2 % % (11.5-15.2) Plt Count 252 10^3/uL 10^3/uL (150-400) MPV 9.6 fL fL (8.7-11.7) Neut % (Auto) 44.7 % % (39.3-74.2) Lymph % (Auto) 42.9 % % (15.0-45.0) [place] % (Auto) 9.3 % % (4.5-13.0) Eos % (Auto) 1.9 % % (0.6-7.6) Baso % (Auto) 0.9 % % (0.3-1.7) Nucleat RBC Rel Count 0.0 % % (0.0-0.2) Absolute Neuts (auto) 2.85 10^3/uL 10^3/uL (1.70-6.50) Absolute Lymphs (auto) 2.73 10^3/uL 10^3/uL (1.00-3.00) Absolute Monos (auto) 0.59 10^3/uL 10^3/uL (0.30-0.80) Absolute Eos (auto) 0.12 10^3/uL 10^3/uL (0.03-0.40) Absolute Basos (auto) 0.06 10^3/uL 10^3/uL (0.02-0.10) Absolute Nucleated RBC 0.00 10^3/uL 10^3/uL (0-0.01) Immature Gran % 0.3 % % (0.0-1.1) Immature Gran # 0.02 10^3/uL 10^3/uL (0.00-0.10) Sodium 141 mEq/L mEq/L (135-145) Potassium 4.5 mEq/L mEq/L (3.5-5.2) Chloride 113 mEq/L H mEq/L (97-110) Carbon Dioxide 22 mEq/l mEq/l (22-31) Anion Gap 6 mEq/L mEq/L (6-14) BUN 15 mg/dL mg/dL (7-23) Creatinine 1.0 mg/dL mg/dL (0.7-1.3) Estimated GFR > 60 Glucose 136 mg/dL H mg/dL (70-100) Calcium 9.2 mg/dL mg/dL (8.5-10.4) POC Troponin I 0.00 ng/mL ng/mL (0.00-0.08) Point of Care Test Results: Chemistry 07/10/18 10:14 POC Troponin I 0.00 ng/mL ng/mL (0.00-0.08) Departure - Departure Disposition: Home, Routine, Self-Care Clinical Impression: Musculoskeletal pain Condition: Good Instructions: Musculoskeletal Pain (ED) Additional Instructions: 1. I recommend Tylenol and ibuprofen for your pain symptoms. 2. Return to the ED for chest pain which is worsening, difficulty breathing, severe headache, worsening neurologic symptoms or other concerns. 3. The testing done in the emergency department today demonstrates no evidence of a heart attack or problem with your stent. Referrals: Gertrude Roche MD [Primary Care Provider] - As per Instructions
[2018-07-10 10:22] LABS: PLATELET COUNT 252 10^3/uL (150-400)
--- NOTE | 2018-07-10 10:32 | CPEKG ---
Test Reason : OPEN Blood Pressure : / mmHG Vent. Rate : 062 BPM Atrial Rate : 062 BPM P-R Int : 181 ms QRS Dur : 081 ms QT Int : 417 ms P-R-T Axes : 006 006 050 degrees QTc Int : 424 ms Sinus rhythm Confirmed by Con Bowman ([id number]) on 07/10/2018 10:31:50 AM Referred By: Con Bowman Confirmed By:Con Bowman
[2018-07-10 11:27] VITALS: BP 120/87
== END 2018-07-10 11:26 | disposition home or self-care (01) ==
DX: M25.50 Pain in unspecified joint (principal); M79.10 Myalgia, unspecified site
CPT/HCPCS: 84484-ER

== ENCOUNTER 2018-09-08 07:19 | Observation (INO) | payer OTHER ==
[2018-09-08] MEDS ORDERED: DIAZEPAM 5 MG TAB PO ONE (07:21)
[2018-09-08] MEDS ORDERED: diphenhydrAMINE 25 MG CAP PO ONE (07:21)
[2018-09-08] MEDS ORDERED: NS 1,000 ML IV ONE (07:21)
[2018-09-08] MEDS ORDERED: ASPIRIN EC 325 MG TAB PO ONE (07:21)
[2018-09-08] MEDS ORDERED: FAMOTIDINE 20 MG TAB PO ONE (07:21)
[2018-09-08 08:16] LABS: PLATELET COUNT 249 10^3/uL (150-400)
--- NOTE | 2018-09-08 08:22 | PDPROPOC ---
Sedation Plan of Care Sedation Plan of Care: vital signs stable, mental status noted, patient educated of risks, benefits, alternatives, patient can tolerate sedation ASA Classification: ASA 2 Planned drugs: other (local anethesia) Mallampati Reference Image:
[2018-09-08 08:29] LABS: INR 1.01 (0.83-1.16); PROTIME(PATIENT) 12.9 SEC (12.0-15.0)
--- NOTE | 2018-09-08 08:48 | PDHPUP ---
History & Physical Update H&P update statement: This history and physical update is based on an assessment of the patient which was completed after admission or registration (within 24 hours), but prior to the surgery/procedure. H&P update: H&P reviewed & patient examined (abnormal stress test, CCS Class IV Angina), no change in patient's condition since H&P completed
[2018-09-08] MEDS ORDERED: MIDAZOLAM 2 MG/2 ML VIAL ONE (10:55)
[2018-09-08] MEDS ORDERED: LIDOCAINE 1% 300 MG/30 ML SDV ONE (10:55)
[2018-09-08] MEDS ORDERED: fentaNYL 100 MCG/2 ML INJ ONE (10:55)
[2018-09-08] MEDS ORDERED: BIVALIRUDIN 250 MG/5 ML VIAL IV ONE (10:56)
[2018-09-08] MEDS ORDERED: VERAPAMIL 5 MG/2 ML VIAL ONE (10:56)
[2018-09-08] MEDS ORDERED: HEPARIN 10,000 UNIT/10 ML MDV (1,000 UNIT/ML) ONE (10:56)
[2018-09-08] MEDS ORDERED: IOPAMIDOL (ISOVUE-370) 150 ML BTL IV ONE (10:56)
--- NOTE | 2018-09-08 11:32 | PDDXCAT ---
Diagnostic Cath Note - . Date: 09/08/18 Irrigation Equipment Mechanic: Clayton Indication: CCC Class III and IV angina on medical treatment, other ( Intermediate risk stress test) - Procedure Access: right wrist Procedure: left heart catheterization, coronary angiography - Findings-Left Heart Catheterization LM: The left main is normal in size and caliber. The vessel trifurcates into an LAD and circumflex and Ramus system. THere is no evidence of coronary disease. LAD: The left anterior descending demonstrates mild luminal irregularities consistent with atherosclerosis in the proxial segement with no flow-limiting stenosis. There is a moderate first diagonal branch with no evidence of coronary disease. LCX: The circumflex is codominant. THere is no evidence of coronary disease within the circuflex. There is a moderate first obtuse marginal branch with no evidence of coronary disease. RCA: The right coronary artery is a codominant vessel. The vessel was previously stented in the mRCA. There is 80% in stent stenosis with IVUS. Ramus: Ramus intermedius branch demonstrates no evidence of coronary disease. - Findings-Right Heart Catheterization AO: / Complications: NONE Estimated blood loss: <50ml Closure method: TR Band Assessment: The patient has ewiiaapaayp vessel coronary disease with a 80% in-stent restenosis of the previously stented mid RCA by IVUS. Intervention: A 6 Uzbek JR4 guiding catheter was used for guide catheter support. A 0.014" 180 cm Intuition Wire was advanced across the lesion in question under direct fluoroscopic and angiographic guidance. A 3.25 x 10mm [place] cutting balloon was advanced down the Intuition wire. The balloon was unable to pass through the restenosed portion of the previously stented segment of the mid RCA. The balloon was removed and a short Wiggle Wire was advanced in addition to the Intuition Wire. The Intuition Wire was removed and a 1.5 x 15 Emerge Push Balloon was advanced down the Wiggle Wire. The Emerge Push Balloon was deployed at 10 nguyen for 44 seconds and then inflated at 10atm for 15 seconds. The Emerge Push balloon was removed and exchanged for the 3.25 x 10mm [place] cutting balloon. There was seven serial inflations of the [place] cutting balloon with the highest pressure at 14atm and longest duration of 77 seconds. The 3.25 x 10mm [place] cutting balloon was exchanged for a 4.0 x 10mm [place] cutting balloon. There was three inflations with the final at 12atm for 110seconds. Patient Problems: Problems Problem Status Onset Chest pain Acute
[2018-09-08] MEDS ORDERED: ATROPINE SULFATE 1 MG/10 ML SYR ONE (12:13)
--- NOTE | 2018-09-08 12:30 | CPEKG ---
Test Reason : OPEN Blood Pressure : / mmHG Vent. Rate : 065 BPM Atrial Rate : 065 BPM P-R Int : 185 ms QRS Dur : 090 ms QT Int : 414 ms P-R-T Axes : 013 032 047 degrees QTc Int : 431 ms Sinus rhythm Non-specific change in ST segment in lateral leads. Confirmed by Cristóbal Soto ([id number]) on 09/08/2018 12:30:37 PM Referred By: Ra Arnold Confirmed By:Cristóbal Soto
[2018-09-08] MEDS ORDERED: NITROGLYCERIN 0.4 MG BTL SL PRN (12:48)
[2018-09-08] MEDS ORDERED: ATROPINE SULFATE 1 MG/10 ML SYR IVP PRN (12:48)
[2018-09-08] MEDS ORDERED: OXYCODONE/APAP 5/325 TAB PO PRN (12:48)
[2018-09-08] MEDS ORDERED: ONDANSETRON 4 MG/2 ML VIAL IVP PRN (12:48)
[2018-09-08] MEDS ORDERED: HYDROCODONE/APAP 5/325 TAB PO PRN (12:48)
[2018-09-08] MEDS ORDERED: CLOPIDOGREL BISULFATE 75 MG TAB ONE (12:54)
[2018-09-09 07:25] VITALS: BP 124/70
[2018-09-09] MEDS ORDERED: PANTOPRAZOLE SODIUM 40 MG TAB PO SCH (09:00)
[2018-09-09] MEDS ORDERED: METOPROLOL TARTRATE 25 MG TAB PO SCH (09:00)
[2018-09-09] MEDS ORDERED: ASPIRIN 325 MG TAB PO SCH (09:00)
[2018-09-09] MEDS ORDERED: ATORVASTATIN CALCIUM 40 MG TAB PO SCH (09:00)
[2018-09-09] MEDS ORDERED: CLOPIDOGREL BISULFATE 75 MG TAB PO SCH (09:00)
--- NOTE | 2018-09-09 09:49 | CPEKG ---
Test Reason : OPEN Blood Pressure : / mmHG Vent. Rate : 063 BPM Atrial Rate : 063 BPM P-R Int : 193 ms QRS Dur : 083 ms QT Int : 442 ms P-R-T Axes : 004 013 026 degrees QTc Int : 453 ms Sinus rhythm Confirmed by Cristóbal Soto ([id number]) on 09/09/2018 9:48:50 AM Referred By: Ra Arnold Confirmed By:Cristóbal Soto
--- NOTE | 2018-09-09 11:44 | ASDISCHSUM ---
Discharge Information Plan Status:Home with No Needs Medically Cleared to Leave:09/09/2018 Discharge Date:09/09/2018 CM D/C Disposition:Home, Routine, Self-Care ADT D/C Disposition:Home, Routine, Self-Care Projected Discharge Date:09/09/2018 Transportation at D/C: Discharge Delay Reason: Follow-Up Date:09/09/2018 Discharge Slot: Final Diagnosis: Placement Information Patient Contact Information Contact Name:DO Relationship: Address:[address] City:[place] Alternate Phone: [facility]/Zip Code:[place] [address] Email: Financial Information Financial Class:HMO and PPO Plans Primary Plan Desc:[facility] Primary Plan Number:[id number] Secondary Plan Desc: Secondary Plan Number: Assessment Information LACE LACE Length of stay for Answers: Less than 1 day current admission Acuity / Level of Answers: No Care: Did the patient have an inpatient admission? Comorbidities - select Answers: Coronary Artery Disease all that apply Other Notes: HLD; HTN # of Emergency department Answers: 1-2 visits in the last 6 months Score: 4 Date Signed: 09/09/2018 11:43 AM Electronically Signed By:Maisha Hernandez RN Intervention Information
--- NOTE | 2018-09-10 06:11 | GDS ---
[f rep st] DISCHARGE SUMMARY ADMISSION DIAGNOSES: 1. Coronary artery disease. 2. Possible percutaneous coronary intervention. DISCHARGE DIAGNOSES: 1. Coronary artery disease. 2. Percutaneous coronary intervention of the right coronary artery. COURSE OF HOSPITALIZATION: The patient was seen by Dr. Arnold prior to admission for cardiac catheterization on September 08, 2018. He was taken to the cardiac medical laboratory technical officer where Dr. Arnold did find a significant lesion of the RCA. PCI of the RCA was accomplished with no complications. He was recovered and went to PCU for overnight ob servation where he has done well. He has had no arrhythmias, no chest pain, no shortness of breath. Right wrist has no complications. He has good ulnar and radial pulses with good collateral circulat ion. He has been up ambulating with no dizziness. He is stable for discharge. MEDICATIONS: As documented in chart. DISCHARGE PLAN: He will follow up with Dr. Arnold in 7 to 10 days. Appointment has been made. Should he have problems, he is to call [facility] at [phone] Arnold's nurse. At this time, he currently is stable for discharge. /[id number]/[id number]
== END 2018-09-09 12:15 | disposition home or self-care (01) ==
LOC: FCATH 07:19 → F2W 13:21
PROVIDERS: ADMIT Internal Medicine Cardiovascular Disease; ATTEND Internal Medicine Cardiovascular Disease
PROC: 027034Z Dilation of Coronary Artery, One Artery with Drug-eluting Intraluminal Device, Percutaneous Approach (ICD-10-PCS; principal; 2018-09-08)
PROC: B241ZZ3 Ultrasonography of Multiple Coronary Arteries, Intravascular (ICD-10-PCS; principal; 2018-09-08)
PROC: 4A023N7 Measurement of Cardiac Sampling and Pressure, Left Heart, Percutaneous Approach (ICD-10-PCS; principal; 2018-09-08)
PROC: B2151ZZ Fluoroscopy of Left Heart using Low Osmolar Contrast (ICD-10-PCS; principal; 2018-09-08)
PROC: B2111ZZ Fluoroscopy of Multiple Coronary Arteries using Low Osmolar Contrast (ICD-10-PCS; principal; 2018-09-08)
DX: T82.855A Stenosis of coronary artery stent, initial encounter (principal); I25.119 Atherosclerotic heart disease of native coronary artery with unspecified angina pectoris
CPT/HCPCS: 92920; 92978; 93005; 93454; C1725; C1753; C1769; C1887; G0378; J0461; J0583; J1644; J2250; J3010; Q9967